=== PATIENT | male | born 1965 | race African-American/Black ===

== ENCOUNTER 2019-01-04 00:49 | Inpatient (IN) ==
[2019-01-04] MEDS ORDERED: ASPIRIN 325 MG TABLET PO STA (01:19)
[2019-01-04 01:39] LABS: Basophils % 0.8 % (0.0-0.8); Eosinophils # 0.1 10*3/uL (0.0-0.87); Eosinophils % 2.1 % (0.00-10.9); Hematocrit 31.3 VOL% (42.0-52.0); Hemoglobin 10.2 GM/DL (14.0-18.0); Immature Granulocytes % 0.8 %; Immature Granulocytes Absolute 0.04 #; Lymphocytes # 1.8 10*3/uL (1.4-4.0); Lymphocytes % 34.4 % (21.2-54.2); Mean Corpuscular HGB Conc 32.6 GM/DL (32-36); Mean Corpuscular Volume 78.4 FL (87-102); Mean Platelet Volume 9.9 FL (9.6-12.0); Monocytes % 7.6 % (1.7-12.7); Neutrophils % 54.3 % (38.7-73.9); Platelet Count 247 T/CUMM (130-400); Red Blood Count 3.99 MC/CUMM (3.8-5.5); Red Cell Distribution Width 17.2 % (9.3-17.3); White Blood Count 5.2 T/CUMM (4-12)
[2019-01-04 02:16] LABS: Alanine Aminotransferase 31 U/L (16-61); Albumin 3.8 G/DL (3.4-5.0); Alkaline Phosphatase 79 U/L (45-117); Aspartate Amino Transferase 38 U/L (0-37); Bilirubin,Total < 0.39 MG/DL (0.2-1.0); Blood Urea Nitrogen 8 MG/DL (7-18); Calcium 9.3 MG/DL (8.5-10.1); Estimated Glom Filtration Rate 91 ML/MIN; Glucose 82 MG/DL (74-106); Osmolality,Calculated 271.7 MOS/KG (273-304); Total Protein 7.4 G/DL (6.4-8.3)
[2019-01-04] MEDS ORDERED: ONDANSETRON 4 MG/2 ML VIAL IV PRN (05:31)
[2019-01-04] MEDS ORDERED: ALBUTEROL/IPRATROPIUM 3 ML NEB RESP TX PRN (05:31)
[2019-01-04] MEDS ORDERED: NITROGLYCERIN SL 0.4 MG TABLET SL PRN (05:31)
[2019-01-04] MEDS ORDERED: MORPHINE 4 MG/1 ML VIAL IV PRN (05:31)
[2019-01-04] MEDS ORDERED: ACETAMINOPHEN 325 MG TABLET PO PRN (05:31)
[2019-01-04 06:48] LABS: Basophils # 0.1 10*3/uL (0.0-0.2); Basophils % 1.1 % (0.0-0.8); Eosinophils # 0.1 10*3/uL (0.0-0.87); Eosinophils % 2.6 % (0.00-10.9); Hematocrit 31.7 VOL% (42.0-52.0); Hemoglobin 10.2 GM/DL (14.0-18.0); Immature Granulocytes % 0.6 %; Immature Granulocytes Absolute 0.03 #; Lymphocytes % 43.7 % (21.2-54.2); Mean Corpuscular HGB Conc 32.2 GM/DL (32-36); Mean Corpuscular Volume 78.3 FL (87-102); Mean Platelet Volume 10.3 FL (9.6-12.0); Monocytes % 10.4 % (1.7-12.7); Neutrophils % 41.6 % (38.7-73.9); Platelet Count 253 T/CUMM (130-400); Red Blood Count 4.05 MC/CUMM (3.8-5.5); Red Cell Distribution Width 17.2 % (9.3-17.3); White Blood Count 4.6 T/CUMM (4-12)
[2019-01-04] MEDS: SODIUM CHLORIDE 0.9% 1,000 ML IV SCH (06:56)
[2019-01-04 07:17] LABS: % Iron Saturation 3.8 % (18-50); Ferritin 9.2 ng/ml (26-388); Thyroid Stimulating Hormone 1.33 uIU/ml (0.358-3.74)
[2019-01-04 07:22] LABS: Folate 7.3 NG/ML (5.4-24.0); Vitamin B12 444 PG/ML (211-911)
[2019-01-04] MEDS ORDERED: BISACODYL 5 MG TABLET PO SCH (07:30)
[2019-01-04 07:46] LABS: Risk Ratio 4.35
[2019-01-04 07:54] LABS: Sedimentation Rate-Westergren 42 MM/HR (0-20)
[2019-01-04] MEDS ORDERED: LORazepam 1 MG TABLET PO PRN (08:34)
[2019-01-04] MEDS ORDERED: PANTOPRAZOLE 40 MG TABLET PO SCH (09:00)
[2019-01-04] MEDS ORDERED: DIAZEPAM 5 MG TABLET PO ONE (09:13)
[2019-01-04] MEDS ORDERED: diphenhydrAMINE CAP 25 MG CAPSULE PO ONE (09:13)
[2019-01-04] MEDS: THIAMINE 100 MG TABLET PO SCH (09:33)
[2019-01-04] MEDS: PANTOPRAZOLE 40 MG TABLET PO SCH ×2 (09:33→21:01)
[2019-01-04] MEDS: NICOTINE 21 MG/24 HR PATCH TRANSDERM SCH (09:33)
[2019-01-04] MEDS: FOLIC ACID 1 MG TABLET PO SCH (09:33)
[2019-01-04] MEDS: DOCUSATE SODIUM 100 MG CAPSULE PO SCH ×2 (09:41→23:35)
[2019-01-04] MEDS ORDERED: LIDOCAINE 1% 20 ML VIAL ONE (09:49)
[2019-01-04] MEDS: FERROUS SULFATE 325 MG TABLET PO SCH ×2 (10:37→21:01)
[2019-01-04] MEDS ORDERED: HYDROmorphone 2 MG/1 ML VIAL ONE (11:16)
[2019-01-04] MEDS ORDERED: MIDAZOLAM 2 MG/2 ML VIAL ONE (11:16)
[2019-01-04] MEDS ORDERED: ADENOSINE 90 MG/30 ML VIAL IV ONE (11:37)
[2019-01-04] MEDS ORDERED: HEPARIN 5,000 UNIT/1 ML VIAL ONE (11:44)
[2019-01-04 11:46] LABS: Hemoglobin A2 (Alkaline) 2.2 % (1.5-3.5)
[2019-01-04 11:47] LABS: Hemoglobin G (Alkaline) 31.8 %
[2019-01-04] MEDS ORDERED: TICAGRELOR 90 MG TABLET ONE (12:07)
[2019-01-04] MEDS ORDERED: POLYETHYLENE GLYCOL POWDER 255 GM BOTTLE PO ONE (18:00)
[2019-01-04] MEDS ORDERED: MAGNESIUM CITRATE 300 ML BOTTLE PO ONE (21:00)
[2019-01-04] MEDS ORDERED: ATORVASTATIN 40 MG TABLET PO SCH (21:00)
[2019-01-04] MEDS: TICAGRELOR 90 MG TABLET PO SCH (21:01)
[2019-01-04] MEDS: POLYETHYLENE GLYCOL POWDER 17 GM PACK PO SCH (23:35)
[2019-01-04] MEDS: HYDROCORTISONE 25 MG SUPP RECTAL SCH (23:35)
[2019-01-05] MEDS: SODIUM CHLORIDE 0.9% 1,000 ML IV SCH ×3 (01:17→12:24)
[2019-01-05 04:38] LABS: Basophils % 0.7 % (0.0-0.8); Eosinophils # 0.1 10*3/uL (0.0-0.87); Hemoglobin 9.6 GM/DL (14.0-18.0); Immature Granulocytes % 0.7 %; Immature Granulocytes Absolute 0.04 #; Lymphocytes # 1.6 10*3/uL (1.4-4.0); Mean Corpuscular Volume 77.3 FL (87-102); Mean Platelet Volume 10.6 FL (9.6-12.0); Monocytes % 9.9 % (1.7-12.7); Neutrophils % 60.7 % (38.7-73.9); Platelet Count 233 T/CUMM (130-400); Red Blood Count 3.88 MC/CUMM (3.8-5.5); Red Cell Distribution Width 16.9 % (9.3-17.3)
[2019-01-05 05:05] LABS: Calcium 8.4 MG/DL (8.5-10.1); Osmolality,Calculated 271.7 MOS/KG (273-304)
[2019-01-05] MEDS: PANTOPRAZOLE 40 MG TABLET PO SCH (08:41)
[2019-01-05] MEDS: FERROUS SULFATE 325 MG TABLET PO SCH (08:41)
[2019-01-05] MEDS: DOCUSATE SODIUM 100 MG CAPSULE PO SCH (08:41)
[2019-01-05] MEDS: THIAMINE 100 MG TABLET PO SCH (08:41)
[2019-01-05] MEDS: FOLIC ACID 1 MG TABLET PO SCH (08:41)
[2019-01-05] MEDS: TICAGRELOR 90 MG TABLET PO SCH (08:42)
[2019-01-05] MEDS: NICOTINE 21 MG/24 HR PATCH TRANSDERM SCH (08:45)
[2019-01-05] MEDS: HYDROCORTISONE 25 MG SUPP RECTAL SCH (08:45)
[2019-01-05] MEDS: POLYETHYLENE GLYCOL POWDER 17 GM PACK PO SCH (08:53)
[2019-01-05] MEDS ORDERED: ASPIRIN EC 81 MG TABLET PO SCH (09:00)
[2019-01-05] MEDS ORDERED: carvediloL 3.125 MG TABLET PO SCH (10:30)
[2019-01-05 10:32] LABS: Troponin I 0.036 NG/ML (0.00-0.045)
[2019-01-05 12:07] VITALS: BP 125/76
== END 2019-01-05 11:33 | disposition home or self-care (01) | DRG 247 ==
LOC: N.ED 00:49 → N.EDINP 00:49 → N.TELES 05:08
PROC: CLCCHCL (ICD-10-PCS; 2019-01-04 11:45)

== ENCOUNTER 2019-04-18 19:25 | Inpatient (IN) ==
[2019-04-18 19:48] LABS: Basophils # 0.1 10*3/uL (0.0-0.2); Eosinophils # 0.1 10*3/uL (0.0-0.87); Eosinophils % 1.9 % (0.00-10.9); Hematocrit 32.7 VOL% (42.0-52.0); Immature Granulocytes % 0.3 %; Immature Granulocytes Absolute 0.02 #; Lymphocytes # 2.2 10*3/uL (1.4-4.0); Lymphocytes % 37.4 % (21.2-54.2); Mean Corpuscular HGB Conc 33.6 GM/DL (32-36); Mean Corpuscular Volume 86.7 FL (87-102); Mean Platelet Volume 9.7 FL (9.6-12.0); Monocytes % 6.8 % (1.7-12.7); Neutrophils % 52.6 % (38.7-73.9); Platelet Count 215 T/CUMM (130-400); Red Blood Count 3.77 MC/CUMM (3.8-5.5); Red Cell Distribution Width 15.6 % (9.3-17.3); White Blood Count 5.9 T/CUMM (4-12)
[2019-04-18 19:59] LABS: INR 1.1; PT Patient Result 12.3 SECS (9.6-12.2)
[2019-04-18 20:23] LABS: Alanine Aminotransferase 34 U/L (16-61); Albumin 3.5 G/DL (3.4-5.0); Alkaline Phosphatase 86 U/L (45-117); Aspartate Amino Transferase 36 U/L (0-37); Bilirubin,Total < 0.39 MG/DL (0.2-1.0); Blood Urea Nitrogen 7 MG/DL (7-18); Calcium 8.7 MG/DL (8.5-10.1); Estimated Glom Filtration Rate 104 ML/MIN; Glucose 99 MG/DL (74-106); Osmolality,Calculated 267.1 MOS/KG (273-304); Total Protein 7.3 G/DL (6.4-8.3)
[2019-04-18] MEDS ORDERED: ACETAMINOPHEN/CODEINE 300-30 MG TABLET PO STA (20:46)
[2019-04-18] MEDS ORDERED: ALBUTEROL/IPRATROPIUM 3 ML NEB RESP TX STA (20:46)
[2019-04-18] MEDS ORDERED: DEXAMETHASONE 4 MG/1 ML VIAL IM STA (20:46)
[2019-04-18] MEDS ORDERED: KETOROLAC 30 MG/1 ML VIAL IM STA (20:46)
[2019-04-18] MEDS ORDERED: SODIUM CHLORIDE 0.9% 1,000 ML IV STA (21:25)
[2019-04-18] MEDS ORDERED: PANTOPRAZOLE 40 MG VIAL IV STA (21:30)
[2019-04-19] MEDS ORDERED: ONDANSETRON 4 MG/2 ML VIAL IV PRN (01:37)
[2019-04-19] MEDS ORDERED: ACETAMINOPHEN 325 MG TABLET PO PRN (01:37)
[2019-04-19] MEDS ORDERED: DOCUSATE SODIUM 100 MG CAPSULE PO PRN (01:37)
[2019-04-19] MEDS: SODIUM CHLORIDE 0.9% 1,000 ML IV SCH ×3 (01:58→16:55)
[2019-04-19 02:03] LABS: Basophils % 0.7 % (0.0-0.8); Eosinophils % 0.2 % (0.00-10.9); Hemoglobin 10.2 GM/DL (14.0-18.0); Immature Granulocytes % 0.2 %; Immature Granulocytes Absolute 0.01 #; Lymphocytes # 0.7 10*3/uL (1.4-4.0); Mean Corpuscular HGB Conc 32.9 GM/DL (32-36); Mean Corpuscular Volume 88.1 FL (87-102); Mean Platelet Volume 9.9 FL (9.6-12.0); Monocytes % 2.7 % (1.7-12.7); Neutrophils % 79.2 % (38.7-73.9); Platelet Count 175 T/CUMM (130-400); Red Blood Count 3.52 MC/CUMM (3.8-5.5); Red Cell Distribution Width 15.8 % (9.3-17.3); White Blood Count 4.1 T/CUMM (4-12)
[2019-04-19 02:28] LABS: Calcium 8.5 MG/DL (8.5-10.1); Osmolality,Calculated 273.7 MOS/KG (273-304); Risk Ratio 3.2; Thyroid Stimulating Hormone 0.625 uIU/ml (0.358-3.74); VLDL CHOLESTEROL 11.6 MG/DL
[2019-04-19 07:49] LABS: Hematocrit 32.2 VOL% (42.0-52.0); Hemoglobin 10.7 GM/DL (14.0-18.0)
[2019-04-19] MEDS: NICOTINE 14 MG/24 HR PATCH TRANSDERM SCH (09:04)
[2019-04-19] MEDS: PANTOPRAZOLE 40 MG TABLET PO SCH (09:04)
[2019-04-19 13:40] LABS: Hematocrit 28.4 VOL% (42.0-52.0); Hemoglobin 9.5 GM/DL (14.0-18.0)
[2019-04-19] MEDS ORDERED: POLYETHYLENE GLYCOL POWDER 255 GM BOTTLE PO ONE (18:00)
[2019-04-19 19:43] LABS: Hematocrit 26.6 VOL% (42.0-52.0)
[2019-04-19] MEDS ORDERED: MAGNESIUM CITRATE 300 ML BOTTLE PO ONE (21:00)
[2019-04-19] MEDS: ATORVASTATIN 40 MG TABLET PO SCH (21:33)
[2019-04-20] MEDS: SODIUM CHLORIDE 0.9% 1,000 ML IV SCH ×4 (03:12→17:54)
[2019-04-20 06:01] LABS: Basophils % 0.7 % (0.0-0.8); Eosinophils # 0.1 10*3/uL (0.0-0.87); Eosinophils % 2.7 % (0.00-10.9); Hematocrit 29.9 VOL% (42.0-52.0); Immature Granulocytes % 0.2 %; Immature Granulocytes Absolute 0.01 #; Lymphocytes # 2.1 10*3/uL (1.4-4.0); Lymphocytes % 46.5 % (21.2-54.2); Mean Corpuscular HGB Conc 33.4 GM/DL (32-36); Mean Corpuscular Volume 88.2 FL (87-102); Mean Platelet Volume 10.7 FL (9.6-12.0); Monocytes % 7.6 % (1.7-12.7); Neutrophils % 42.3 % (38.7-73.9); Platelet Count 191 T/CUMM (130-400); Red Blood Count 3.39 MC/CUMM (3.8-5.5); Red Cell Distribution Width 15.5 % (9.3-17.3); White Blood Count 4.5 T/CUMM (4-12)
[2019-04-20 06:20] LABS: Calcium 8.3 MG/DL (8.5-10.1)
[2019-04-20] MEDS ORDERED: propofoL 200 MG/20 ML VIAL IV ONE (09:00)
[2019-04-20] MEDS ORDERED: LIDOCAINE 2% 5 ML VIAL ONE (09:00)
[2019-04-20] MEDS: NICOTINE 14 MG/24 HR PATCH TRANSDERM SCH (09:03)
[2019-04-20] MEDS: PANTOPRAZOLE 40 MG TABLET PO SCH (09:03)
[2019-04-20] MEDS: LACTATED RINGERS 1,000 ML IV SCH (09:30)
[2019-04-20] MEDS: HYDROmorphone 2 MG/1 ML VIAL IV PRN ×5 (10:00→23:38)
[2019-04-20] MEDS: POLYETHYLENE GLYCOL POWDER 17 GM PACK PO SCH ×2 (15:33→21:15)
[2019-04-20] MEDS: ATORVASTATIN 40 MG TABLET PO SCH (21:15)
[2019-04-21] MEDS: SODIUM CHLORIDE 0.9% 1,000 ML IV SCH ×2 (02:48→12:18)
[2019-04-21 04:34] LABS: Basophils % 0.7 % (0.0-0.8); Eosinophils # 0.2 10*3/uL (0.0-0.87); Eosinophils % 4.1 % (0.00-10.9); Hematocrit 29.1 VOL% (42.0-52.0); Hemoglobin 9.6 GM/DL (14.0-18.0); Immature Granulocytes % 0.2 %; Immature Granulocytes Absolute 0.01 #; Lymphocytes # 1.9 10*3/uL (1.4-4.0); Lymphocytes % 32.8 % (21.2-54.2); Mean Corpuscular Volume 88.2 FL (87-102); Mean Platelet Volume 10.6 FL (9.6-12.0); Monocytes % 6.9 % (1.7-12.7); Neutrophils % 55.3 % (38.7-73.9); Platelet Count 191 T/CUMM (130-400); Red Cell Distribution Width 15.2 % (9.3-17.3); White Blood Count 5.7 T/CUMM (4-12)
[2019-04-21 05:06] LABS: Calcium 8.2 MG/DL (8.5-10.1); Osmolality,Calculated 270.7 MOS/KG (273-304)
[2019-04-21] MEDS ORDERED: LACTATED RINGERS 1,000 ML IV SCH (07:00)
[2019-04-21] MEDS ORDERED: PANTOPRAZOLE 40 MG TABLET PO SCH (09:00)
[2019-04-21] MEDS ORDERED: ASPIRIN CHEW 81 MG TABLET PO SCH (09:00)
[2019-04-21] MEDS ORDERED: LIDOCAINE 2% 5 ML VIAL ONE (09:00)
[2019-04-21] MEDS ORDERED: propofoL 200 MG/20 ML VIAL IV ONE (09:00)
[2019-04-21] MEDS: NICOTINE 14 MG/24 HR PATCH TRANSDERM SCH (09:03)
[2019-04-21] MEDS: POLYETHYLENE GLYCOL POWDER 17 GM PACK PO SCH ×2 (09:04→15:15)
[2019-04-21] MEDS: LACTATED RINGERS 1,000 ML IV SCH (12:19)
[2019-04-21 14:41] VITALS: BP 141/82
[2019-04-22] MEDS ORDERED: CLOPIDOGREL 75 MG TABLET PO SCH (09:00)
== END 2019-04-21 17:15 | disposition home or self-care (01) | DRG 349 ==
LOC: N.ED 19:25 → N.EDINP 23:55 → N.TELES 04-19 01:34
PROVIDERS: ADMIT Emergency Medicine; ATTEND Emergency Medicine
PROC: COLONBL (2019-04-20 07:35)

== ENCOUNTER 2020-01-12 18:16 | Inpatient (IN) ==
[2020-01-12 18:53] LABS: Basophils # 0.1 10*3/uL (0.0-0.2); Basophils % 0.9 % (0.0-0.8); Eosinophils # 0.1 10*3/uL (0.0-0.87); Eosinophils % 1.1 % (0.00-10.9); Hemoglobin 14.7 GM/DL (14.0-18.0); Immature Granulocytes % 1.1 %; Immature Granulocytes Absolute 0.06 #; Lymphocytes # 1.7 10*3/uL (1.4-4.0); Lymphocytes % 30.7 % (21.2-54.2); Mean Corpuscular HGB Conc 35.9 GM/DL (32-36); Mean Platelet Volume 10.7 FL (9.6-12.0); Monocytes % 9.1 % (1.7-12.7); Neutrophils % 57.1 % (38.7-73.9); Platelet Count 159 T/CUMM (130-400); Red Blood Count 4.41 MC/CUMM (3.8-5.5); Red Cell Distribution Width 12.1 % (9.3-17.3); White Blood Count 5.4 T/CUMM (4-12)
[2020-01-12] MEDS ORDERED: ONDANSETRON 4 MG/2 ML VIAL IV PRN ×2 (19:09→21:59)
[2020-01-12] MEDS ORDERED: ONDANSETRON 4 MG/2 ML VIAL IV STA (19:09)
[2020-01-12 19:13] LABS: Eosinophils 2 % (0-10); Lymphocytes 37 % (20-55); Platelet Estimate Adequate; Segmented Neutrophils 58 % (50-85); Total Cells Counted 100
[2020-01-12] MEDS ORDERED: NITROGLYCERIN 2% OINT 1 INCH/GM PACK TOP STA (19:22)
[2020-01-12 19:23] LABS: Alanine Aminotransferase 33 U/L (16-61); Albumin 3.6 G/DL (3.4-5.0); Alkaline Phosphatase 84 U/L (45-117); Aspartate Amino Transferase 38 U/L (0-37); Bilirubin,Total < 0.39 MG/DL (0.2-1.0); Blood Urea Nitrogen 3 MG/DL (7-18); Calcium 9.3 MG/DL (8.5-10.1); Estimated Glom Filtration Rate 119 ML/MIN; Glucose 94 MG/DL (74-106); Osmolality,Calculated 258.7 MOS/KG (273-304); Total Protein 7.1 G/DL (6.4-8.3)
[2020-01-12] MEDS ORDERED: ALUM/MAG/SIMETH/LIDO VISC 1:1 30 ML BOTTLE PO STA (19:23)
[2020-01-12] MEDS ORDERED: MORPHINE 4 MG/1 ML VIAL IV STA ×2 (19:23→20:22)
[2020-01-12] MEDS ORDERED: ASPIRIN 325 MG TABLET PO STA (19:24)
[2020-01-12] MEDS ORDERED: ENOXAPARIN 60 MG/0.6 ML SYRINGE SUBCUT STA (21:58)
[2020-01-12] MEDS ORDERED: ACETAMINOPHEN 325 MG TABLET PO PRN (21:59)
[2020-01-12] MEDS ORDERED: MORPHINE 4 MG/1 ML VIAL IV PRN (21:59)
[2020-01-12] MEDS ORDERED: DOCUSATE SODIUM 100 MG CAPSULE PO PRN (21:59)
[2020-01-12] MEDS ORDERED: NICOTINE 21 MG/24 HR PATCH TRANSDERM PRN (21:59)
[2020-01-12] MEDS ORDERED: NITROGLYCERIN SL 0.4 MG TABLET SL PRN (22:18)
[2020-01-12] MEDS ORDERED: LORazepam 2 MG/1 ML VIAL IV PRN (22:34)
[2020-01-13 01:09] LABS: Basophils % 0.8 % (0.0-0.8); Eosinophils % 0.4 % (0.00-10.9); Hematocrit 40.8 VOL% (42.0-52.0); Hemoglobin 14.7 GM/DL (14.0-18.0); Immature Granulocytes % 0.6 %; Immature Granulocytes Absolute 0.03 #; Lymphocytes # 1.2 10*3/uL (1.4-4.0); Lymphocytes % 24.8 % (21.2-54.2); Mean Corpuscular Volume 91.9 FL (87-102); Mean Platelet Volume 10.3 FL (9.6-12.0); Monocytes % 6.5 % (1.7-12.7); Neutrophils % 66.9 % (38.7-73.9); Platelet Count 161 T/CUMM (130-400); Red Blood Count 4.44 MC/CUMM (3.8-5.5); Red Cell Distribution Width 11.9 % (9.3-17.3); White Blood Count 4.9 T/CUMM (4-12)
[2020-01-13 01:28] LABS: Calcium 9.2 MG/DL (8.5-10.1); Osmolality,Calculated 259.8 MOS/KG (273-304); VLDL CHOLESTEROL 23.6 MG/DL
[2020-01-13 02:34] LABS: Platelet Estimate Normal
[2020-01-13] MEDS: TICAGRELOR 90 MG TABLET PO SCH (08:55)
[2020-01-13] MEDS: ASPIRIN EC 81 MG TABLET PO SCH (08:55)
[2020-01-13] MEDS: PANTOPRAZOLE 40 MG TABLET PO SCH (08:55)
[2020-01-13] MEDS: carvediloL 3.125 MG TABLET PO SCH (08:55)
[2020-01-13] MEDS ORDERED: ENOXAPARIN 60 MG/0.6 ML SYRINGE SUBCUT SCH (09:00)
[2020-01-13] MEDS ORDERED: ALBUTEROL/IPRATROPIUM 3 ML NEB RESP TX PRN (09:48)
[2020-01-13] MEDS ORDERED: diphenhydrAMINE CAP 25 MG CAPSULE PO ONE ×2 (12:53→22:00)
[2020-01-13] MEDS ORDERED: DIAZEPAM 5 MG TABLET PO ONE ×2 (12:53→21:49)
[2020-01-13] MEDS ORDERED: DIAZEPAM 5 MG TABLET ONE (12:57)
[2020-01-13] MEDS ORDERED: SODIUM CHLORIDE 0.45% 1,000 ML IV SCH (13:00)
[2020-01-13] MEDS ORDERED: LIDOCAINE 1% 20 ML VIAL ONE ×2 (13:30→22:21)
[2020-01-13] MEDS ORDERED: HYDROmorphone 2 MG/1 ML VIAL ONE ×2 (13:31→22:21)
[2020-01-13] MEDS ORDERED: MIDAZOLAM 2 MG/2 ML VIAL ONE ×2 (13:31→22:21)
[2020-01-13] MEDS ORDERED: ENOXAPARIN 60 MG/0.6 ML SYRINGE ONE (13:56)
[2020-01-13] MEDS ORDERED: TIROFIBAN 5,000 MCG/100 ML PREMIX IV ONE (13:56)
[2020-01-13 16:08] LABS: CKMB % 11.9 %
[2020-01-13 16:10] LABS: Troponin I 16.9 NG/ML (0.00-0.045)
[2020-01-13] MEDS: predniSONE 20 MG TABLET PO SCH (16:25)
[2020-01-13] MEDS ORDERED: ATORVASTATIN 40 MG TABLET PO SCH (21:00)
[2020-01-13] MEDS ORDERED: diphenhydrAMINE CAP 50 MG CAPSULE PO ONE (21:45)
[2020-01-13] MEDS ORDERED: HEPARIN/NACL 0.9% 2 UNITS/ML 1,000 ML IV ONE (22:10)
[2020-01-13 22:11] LABS: INR 0.9; PT Patient Result 10.2 SECS (9.8-11.9); Partial Thromboplastin Time 30.2 SECS (23.9-33.8)
[2020-01-13] MEDS ORDERED: HEPARIN DRIP 25,000 UNITS/500 ML PREMIX IV SCH (22:15)
[2020-01-13] MEDS ORDERED: HEPARIN 5,000 UNIT/1 ML VIAL IV PRN (22:15)
[2020-01-13] MEDS ORDERED: HEPARIN 5,000 UNIT/1 ML VIAL ONE (22:51)
[2020-01-14] MEDS: FERROUS SULFATE 325 MG TABLET PO SCH ×2 (00:01→09:08)
[2020-01-14 05:48] LABS: Basophils % 0.5 % (0.0-0.8); Eosinophils % 0.5 % (0.00-10.9); Hematocrit 44.1 VOL% (42.0-52.0); Hemoglobin 15.4 GM/DL (14.0-18.0); Immature Granulocytes % 0.7 %; Immature Granulocytes Absolute 0.04 #; Lymphocytes # 1.3 10*3/uL (1.4-4.0); Mean Corpuscular HGB Conc 34.9 GM/DL (32-36); Mean Platelet Volume 11.4 FL (9.6-12.0); Monocytes % 7.4 % (1.7-12.7); Neutrophils % 66.9 % (38.7-73.9); Platelet Count 156 T/CUMM (130-400); Red Blood Count 4.69 MC/CUMM (3.8-5.5); Red Cell Distribution Width 12.5 % (9.3-17.3); White Blood Count 5.5 T/CUMM (4-12)
[2020-01-14 05:53] VITALS: BP 126/79
[2020-01-14 06:12] LABS: CKMB % 8.1 %
[2020-01-14 06:14] LABS: Calcium 9.1 MG/DL (8.5-10.1)
[2020-01-14 06:14] LABS: Troponin I 7.25 NG/ML (0.00-0.045)
[2020-01-14] MEDS ORDERED: THIAMINE 100 MG TABLET PO SCH (09:00)
[2020-01-14] MEDS ORDERED: FOLIC ACID 1 MG TABLET PO SCH (09:00)
[2020-01-14] MEDS: ASPIRIN EC 81 MG TABLET PO SCH (09:07)
[2020-01-14] MEDS: predniSONE 20 MG TABLET PO SCH (09:07)
[2020-01-14] MEDS: carvediloL 3.125 MG TABLET PO SCH ×2 (09:07)
[2020-01-14] MEDS: PANTOPRAZOLE 40 MG TABLET PO SCH (09:08)
[2020-01-14] MEDS: TICAGRELOR 90 MG TABLET PO SCH ×2 (09:08)
[2020-01-14] MEDS ORDERED: NICOTINE 21 MG/24 HR PATCH TRANSDERM SCH (09:30)
[2020-01-14] MEDS ORDERED: ALBUTEROL/IPRATROPIUM 3 ML NEB RESP TX SCH (13:00)
[2020-01-15] MEDS ORDERED: buPROPion SR 150 MG TABLET PO SCH (09:00)
[2020-01-18] MEDS ORDERED: buPROPion SR 150 MG TABLET PO SCH (09:00)
== END 2020-01-14 17:59 | disposition home or self-care (01) | DRG 270 ==
LOC: N.EDINP 18:16 → N.ED 18:16 → N.TELES 22:25 → SUATTDRO 01-13 10:48
PROVIDERS: ADMIT Internal Medicine; ATTEND Internal Medicine

== ENCOUNTER 2020-06-14 01:31 | Observation (INO) ==
[2020-06-14 01:54] LABS: Basophils % 0.6 % (0.0-0.8); Eosinophils # 0.1 10*3/uL (0.0-0.87); Hematocrit 43.4 VOL% (42.0-52.0); Hemoglobin 14.8 GM/DL (14.0-18.0); Immature Granulocytes % 0.5 %; Immature Granulocytes Absolute 0.03 #; Lymphocytes # 1.6 10*3/uL (1.4-4.0); Lymphocytes % 23.8 % (21.2-54.2); Mean Corpuscular HGB Conc 34.1 GM/DL (32-36); Mean Corpuscular Volume 94.1 FL (87-102); Mean Platelet Volume 10.3 FL (9.6-12.0); Monocytes % 7.7 % (1.7-12.7); Neutrophils % 65.4 % (38.7-73.9); Platelet Count 237 T/CUMM (130-400); Red Blood Count 4.61 MC/CUMM (3.8-5.5); Red Cell Distribution Width 12.9 % (9.3-17.3); White Blood Count 6.6 T/CUMM (4-12)
[2020-06-14 02:09] LABS: Alanine Aminotransferase 31 U/L (16-61); Albumin 3.4 G/DL (3.4-5.0); Alkaline Phosphatase 100 U/L (45-117); Aspartate Amino Transferase 31 U/L (0-37); Bilirubin,Total < 0.39 MG/DL (0.2-1.0); Blood Urea Nitrogen 8 MG/DL (7-18); Calcium 9.2 MG/DL (8.5-10.1); Carbon Dioxide 22 MMOL/L (21-32); Estimated Glom Filtration Rate 117 ML/MIN; Glucose 87 MG/DL (74-106); Osmolality,Calculated 262.4 MOS/KG (273-304); Potassium 3.7 MMOL/L (3.5-5.1); Sodium 133 MMOL/L (136-145); Total Protein 7.4 G/DL (6.4-8.2)
[2020-06-14] MEDS ORDERED: NITROGLYCERIN 2% OINT 1 INCH/GM PACK TOP STA (02:15)
[2020-06-14] MEDS ORDERED: ALUM/MAG/SIMETH/LIDO VISC 1:1 30 ML BOTTLE PO STA (02:15)
[2020-06-14] MEDS ORDERED: MORPHINE 4 MG/1 ML VIAL IV STA (02:15)
[2020-06-14] MEDS ORDERED: ASPIRIN 325 MG TABLET PO STA (02:15)
[2020-06-14] MEDS ORDERED: ONDANSETRON 4 MG/2 ML VIAL IV STA (02:15)
[2020-06-14 02:35] LABS: PT Patient Result 10.3 SECS (9.8-11.9)
[2020-06-14 02:48] LABS: Bilirubin,Urine Negative (Negative); Blood, Urine Negative (Negative); Glucose,Urine (UA) Negative (Negative); Ketones,Urine Negative (Negative); Nitrite,Urine Negative (Negative); Protein,Urine Negative; RBC,Urine 2 /HPF (0-4); Squamous Epithelial Cell,Urine Occasional /HPF (0-10); Urine Appearance CLEAR (Clear); Urine Color Yellow (Yellow); Urine Specific Gravity 1.011 (1.001-1.035); WBC,Urine 1 /HPF (0-6)
[2020-06-14] MEDS ORDERED: ENOXAPARIN 100 MG/ML SYRINGE SUBCUT STA (02:53)
[2020-06-14] MEDS ORDERED: methylPREDNISolone SOD SUC 125 MG/2 ML VIAL IV STA (02:53)
[2020-06-14] MEDS ORDERED: ALBUTEROL/IPRATROPIUM 3 ML NEB RESP TX STA (02:53)
[2020-06-14] MEDS ORDERED: GLUCAGON 1 MG VIAL IM PRN (03:17)
[2020-06-14] MEDS ORDERED: ACETAMINOPHEN 325 MG TABLET PO PRN (03:17)
[2020-06-14] MEDS ORDERED: ALBUTEROL/IPRATROPIUM 3 ML NEB RESP TX PRN (03:17)
[2020-06-14] MEDS ORDERED: ONDANSETRON 4 MG/2 ML VIAL IV PRN (03:17)
[2020-06-14] MEDS ORDERED: MORPHINE 4 MG/1 ML VIAL IV PRN (03:17)
[2020-06-14] MEDS ORDERED: DEXTROSE 50% 25 GM/50 ML VIAL IV PRN (03:17)
[2020-06-14 03:51] LABS: Risk Ratio 2.63; VLDL CHOLESTEROL 25.6 MG/DL
[2020-06-14 07:08] LABS: Barbiturates Screen,Urine Negative (Negative); Benzodiazepines Screen,Urine Negative (Negative); Cannabinoid Screen,Urine Positive (Negative); Opiate Screen,Urine Negative (Negative); Phencyclidine Screen,Urine Negative (Negative)
[2020-06-14] MEDS ORDERED: ENOXAPARIN 40 MG/0.4 ML SYRINGE SUBCUT SCH (08:00)
[2020-06-14] MEDS: NITROGLYCERIN 2% OINT 1 INCH/GM PACK TOP SCH ×2 (09:15→13:58)
[2020-06-14] MEDS ORDERED: ALBUTEROL 2.5 MG/3 ML NEB RESP TX PRN (10:05)
[2020-06-14] MEDS ORDERED: NITROGLYCERIN SL 0.4 MG TABLET SL PRN (10:05)
[2020-06-14] MEDS ORDERED: ALUM/MAG/SIMETH/LIDO VISC 1:1 30 ML BOTTLE PO ONE (10:06)
[2020-06-14] MEDS ORDERED: PRASUGREL 10 MG TABLET PO SCH (10:30)
[2020-06-14] MEDS ORDERED: carvediloL 3.125 MG TABLET PO SCH (10:30)
[2020-06-14] MEDS ORDERED: PANTOPRAZOLE 40 MG VIAL IV SCH (10:30)
[2020-06-14] MEDS ORDERED: ASPIRIN EC 81 MG TABLET PO SCH (10:30)
[2020-06-14 12:07] VITALS: BP 110/70
[2020-06-14] MEDS ORDERED: FERROUS SULFATE 325 MG TABLET PO SCH (21:00)
[2020-06-14] MEDS ORDERED: ATORVASTATIN 40 MG TABLET PO SCH (21:00)
[2020-06-15] MEDS ORDERED: FOLIC ACID 1 MG TABLET PO SCH (09:00)
[2020-06-15] MEDS ORDERED: THIAMINE 100 MG TABLET PO SCH (09:00)
== END 2020-06-14 14:20 | disposition home or self-care (01) ==
LOC: N.EDINP 01:31 → N.ED 01:31 → N.TELEN 07:18
PROVIDERS: ADMIT Internal Medicine; ATTEND Internal Medicine